=== PATIENT | male | born 1980 | race Native Hawaiian/Other Pacific Islander ===

== ENCOUNTER 2020-10-07 15:29 | Outpatient (CLI) | payer OTHER ==
[~2020-10-07] VITALS: Ht 175.3 cm; Wt 81.6 kg
[2020-10-07 17:13] LABS: PLATELET COUNT 114 K/uL (142-355)
== END 2020-10-07 19:08 | disposition home or self-care (01) ==
LOC: INF 15:29
PROVIDERS: ATTEND Family Medicine
DX: U07.1 COVID-19 (principal)
CPT/HCPCS: 36591; 80053; 85027; 96365; Q0239

== ENCOUNTER 2020-10-13 15:17 | Outpatient (CLI) | payer OTHER | END 2020-10-13 21:48 | disposition home or self-care (01) | LOC: RAD 15:17 | PROVIDERS: ATTEND Family Medicine | DX: U07.1 COVID-19 (principal) ==

== ENCOUNTER 2021-11-02 15:19 | Outpatient (CLI) | payer OTHER ==
[2021-11-02 15:58] LABS: PLATELET COUNT 185 K/uL (142-355)
[2021-11-02 16:12] LABS: POTASSIUM 4.5 mmol/L (3.6-5.2)
== END 2021-11-02 19:02 | disposition home or self-care (01) ==
LOC: LABW 15:19
PROVIDERS: ATTEND Nurse Practitioner Family
DX: R07.89 Other chest pain (principal); Z86.16 Personal history of COVID-19; Z09 Encounter for follow-up examination after completed treatment for conditions other than malignant neoplasm
CPT/HCPCS: 36415; 80053; 82550; 82553; 82728; 84484; 85027; 85379; 86140

== ENCOUNTER 2021-11-03 08:51 | Outpatient (CLI) | payer OTHER ==
[~2021-11-03] VITALS: Ht 175.3 cm; Wt 81.6 kg
== END 2021-11-03 20:08 | disposition home or self-care (01) ==
LOC: INF 08:51
PROVIDERS: ATTEND Nurse Practitioner Family
DX: U07.1 COVID-19 (principal); Z23 Encounter for immunization
CPT/HCPCS: 96365; Q0247